=== PATIENT | male | born 1990 ===

== ENCOUNTER 2022-10-05 15:53 | Emergency (ER) | payer SELFPAY ==
[2022-10-05 17:07] LABS: Bilirubin Negative (Negative); Blood, Urine Negative (Negative); Clarity Clear (Clear); Glucose, Urine (Dipstick) Normal (Negative); Ketone, Urine Negative (Negative); Leukocyte Negative Leu/uL (Negative); Nitrite Negative (Negative); Protein, Urine (Dipstick) 20 mg/dL (Neg-Trace)
[2022-10-05] MEDS ORDERED: Lidocaine 1% PF 5 ML VIAL ONE (17:37)
[2022-10-05] MEDS ORDERED: cefTRIAXone\\ROCEPHIN 500 MG VIAL ONE (17:37)
[2022-10-05 22:41] LABS: Chlam.trachomatis by PCR,Urine Not Detected (NotDetected); GC N.gonorrhoeae PCR,UrineVOID Not Detected (NotDetected)
== END 2022-10-05 18:00 | disposition home or self-care (01) ==
LOC: ERS 15:53
DX: Z20.9 Contact with and (suspected) exposure to unspecified communicable disease (principal)
CPT/HCPCS: 81003; 87491; 87591; 96372; 99283; J0696